=== PATIENT | female | born 1985 | race African-American/Black ===

== ENCOUNTER 2019-05-09 05:43 | Emergency (ER) | payer MEDICAID ==
[~2019-05-09] VITALS: Ht 162.6 cm; Wt 107.0 kg
[2019-05-09 05:49] VITALS: BP 138/91
[2019-05-09 07:20] LABS: CLARITY URINE CLEAR (CLEAR); COLOR URINE YELLOW (YELLOW); KETONES URINE NEGATIVE (NEGATIVE); LEUKOCYTE ESTERASE URINE NEGATIVE (NEGATIVE); NITRITE URINE NEGATIVE (NEGATIVE); OCCULT BLOOD URINE NEGATIVE (NEGATIVE); PH URINE 7.5 (4.5-8.0); PROTEIN URINE NEGATIVE (NEGATIVE); SPECIFIC GRAVITY URINE 1.025 (1.005-1.030)
== END 2019-05-09 07:04 | disposition left against medical advice (07) ==
LOC: ER 05:43
DX: H57.11 Ocular pain, right eye (principal); Z53.21 Procedure and treatment not carried out due to patient leaving prior to being seen by health care provider
CPT/HCPCS: 81003; 99283

== ENCOUNTER 2019-05-09 07:28 | Emergency (ER) | payer MEDICAID ==
[~2019-05-09] VITALS: Ht 162.6 cm; Wt 107.0 kg
[2019-05-09 08:02] VITALS: BP 149/94
[2019-05-09] MEDS ORDERED: TETRACAINE 0.5% OPHTH DROPS 4ML OP ONE (10:30)
[2019-05-09] MEDS ORDERED: FLUORESCEIN SODIUM 1MG/STRIP OP ONE (10:30)
== END 2019-05-09 12:30 | disposition home or self-care (01) ==
LOC: ER 07:28
DX: S05.01XA Injury of conjunctiva and corneal abrasion without foreign body, right eye, initial encounter (principal); X58.XXXA Exposure to other specified factors, initial encounter; Y93.89 Activity, other specified; Y92.89 Other specified places as the place of occurrence of the external cause; R03.0 Elevated blood-pressure reading, without diagnosis of hypertension
CPT/HCPCS: 99283

== ENCOUNTER 2019-05-18 15:19 | Emergency (ER) | payer MEDICAID ==
[~2019-05-18] VITALS: Ht 162.6 cm; Wt 112.0 kg
[2019-05-18] MEDS ORDERED: TETANUS, DIPHTHERIA, PERTUSSIS VAC/PF 0.5ML (>7YR OLD) IM ONE (21:15)
[2019-05-18] MEDS ORDERED: AZITHROMYCIN 500 MG TABLET PO ONE (21:15)
[2019-05-18] MEDS ORDERED: CEFTRIAXONE SODIUM 250 MG/VIAL IM ONE (21:15)
[2019-05-18] MEDS ORDERED: BACITRACIN ZINC OINT UDPKT TOP ONE (21:15)
[2019-05-18] MEDS ORDERED: BACITRACIN 15GM TUBE TOP NR (21:30)
[2019-05-18 21:56] VITALS: BP 184/115
== END 2019-05-18 21:58 | disposition home or self-care (01) ==
LOC: ER 15:19
DX: L03.312 Cellulitis of back [any part except buttock and flank] (principal); A54.9 Gonococcal infection, unspecified; Z23 Encounter for immunization; F17.210 Nicotine dependence, cigarettes, uncomplicated; Z20.2 Contact with and (suspected) exposure to infections with a predominantly sexual mode of transmission
CPT/HCPCS: 90471; 90715; 96372; 99284; J0696